=== PATIENT | male | born 1965 | race Two or more races ===

== ENCOUNTER 2021-04-01 20:24 | Emergency (ER) | payer MEDICAID ==
[~2021-04-01] VITALS: Ht 157.5 cm; Wt 72.6 kg
--- NOTE | 2021-04-01 20:39 | NUR ---
pt bibself c/o lower abd pain and back pain x6 months. Pt aaox4 breathing evenly and unlabored. Pt attached to monitor and pox. MD at bedside for eval. skin warm, dry, and intact. Pt given blanket and call light within reach.
--- NOTE | 2021-04-01 20:47 | NUR ---
urine sent to lab
[2021-04-01] MEDS ORDERED: DICYCLOMINE HCL 10 MG CAPSULE PO ONE ×2 (20:50→21:00)
--- NOTE | 2021-04-01 20:50 | NUR ---
at bedside for us
[2021-04-01 20:54] LABS: BILIRUBIN,URINE Negative (NEGATIVE); COLOR,URINE YELLOW (YELLOW); LEUKOCYTE ESTERASE ,URINE Negative (NEGATIVE); NITRITE, URINE Negative (NEGATIVE); PH,URINE 5.5 (5.0-8.0); PROTEIN,URINE Negative (NEGATIVE); UGLUCOSE Negative (NEGATIVE); UROBILINOGEN,URINE 0.2 EU/dL (0.2)
[2021-04-01] MEDS ORDERED: DICY10CA37 PO (20:54)
[2021-04-01 21:12] VITALS: BP 138/89
--- NOTE | 2021-04-01 21:13 | NUR ---
Patient discharged to home in stable condition. Rx and Written and verbal after care instructions given. Patient verbalizes understanding of instruction.
== END 2021-04-01 21:13 | disposition home or self-care (01) ==
LOC: ER 20:32
DX: G89.29 Other chronic pain (principal); R30.0 Dysuria; I10 Essential (primary) hypertension; E78.00 Pure hypercholesterolemia, unspecified; Z88.8 Allergy status to other drugs, medicaments and biological substances

== ENCOUNTER → 2021-11-30 | Emergency (ER) | payer MEDICAID ==
[~2021-11-30] VITALS: Ht 172.7 cm; Wt 81.2 kg
[~2021-11-30] MED LIST: BENZ-13 PO; DICY10CA37 PO; GUAI1TBM19 PO; GUAIFENESIN/D-METHORPHAN HB 5 ML UDC ONE; GUAIFENESIN/D-METHORPHAN HB 5 ML UDC PO ONE; KETOROLAC TROMETHAMINE INJ 30 MG/ML VIAL IM ONE; KETOROLAC TROMETHAMINE INJ 30 MG/ML VIAL ONE; PRED20TA PO; predniSONE 20 MG TABLET ONE; predniSONE 50 MG TABLET PO ONE
[2021-11-30 13:11] VITALS: BP 151/91
--- NOTE | 2021-11-30 13:15 | NUR ---
BIBS FOR C/O FACIAL ITCHING/NASAL CONGESTION AND SKIN ITCHING SINCE HE WAS EXPOSED TO DUST AFTER LIFTING A CARPET A WEEK AGO. DENIES PAIN. IN ROOM AIR AND DENIES SOB. RESPIRATION REGULAR AND UNLABORED. WILL CONTINUE TO MONITOR THE PATIENT.
--- NOTE | 2021-11-30 15:00 | NUR ---
Patient discharged to home in stable condition. Written and verbal after care instructions given. Patient verbalizes understanding of instruction.
--- NOTE | 2021-11-30 15:01 | NUR ---
UNABLE TO DEPART THE PATIENT FROM [facility]
== END | disposition home or self-care (01) ==
LOC: ER 16:34
DX: T78.40XA Allergy, unspecified, initial encounter (principal); I10 Essential (primary) hypertension; E78.00 Pure hypercholesterolemia, unspecified; Z88.8 Allergy status to other drugs, medicaments and biological substances; Z79.52 Long term (current) use of systemic steroids; Z79.899 Other long term (current) drug therapy; X58.XXXA Exposure to other specified factors, initial encounter
CPT/HCPCS: 96372; 99283; J1885; J7512

== ENCOUNTER 2021-12-21 16:47 | Emergency (ER) | payer MEDICAID ==
[~2021-12-21] VITALS: Ht 172.7 cm; Wt 68.0 kg
[~2021-12-21 16:47] MED LIST changes: -GUAIFENESIN/D-METHORPHAN HB 5 ML UDC ONE; -GUAIFENESIN/D-METHORPHAN HB 5 ML UDC PO ONE; -KETOROLAC TROMETHAMINE INJ 30 MG/ML VIAL IM ONE; -KETOROLAC TROMETHAMINE INJ 30 MG/ML VIAL ONE; -predniSONE 20 MG TABLET ONE; -predniSONE 50 MG TABLET PO ONE
[2021-12-21] MEDS ORDERED: IBUPROFEN 600 MG TABLET ONE (17:22)
[2021-12-21] MEDS ORDERED: IBUPROFEN 600 MG TABLET PO ONE (17:30)
--- NOTE | 2021-12-21 18:24 | NUR ---
CALLED [facility] FOR READ [phone]
[2021-12-21 18:52] VITALS: BP 121/81
== END 2021-12-21 18:53 | disposition home or self-care (01) ==
LOC: ER 16:48
DX: R07.81 Pleurodynia (principal); I10 Essential (primary) hypertension; E78.00 Pure hypercholesterolemia, unspecified; Z88.8 Allergy status to other drugs, medicaments and biological substances; Z79.899 Other long term (current) drug therapy; Y08.89XA Assault by other specified means, initial encounter; Y93.89 Activity, other specified; Y92.89 Other specified places as the place of occurrence of the external cause; Y99.8 Other external cause status
CPT/HCPCS: 71111-TC

== ENCOUNTER 2022-11-27 10:02 | Emergency (ER) | payer MEDICAID ==
[~2022-11-27] VITALS: Ht 167.6 cm; Wt 68.9 kg
--- NOTE | 2022-11-27 10:15 | NUR ---
C/O DIZZY, WEAKNESS AND BODY ITCHING SINCE YESTERDAY.
--- NOTE | 2022-11-27 10:33 | NUR ---
urine sample obtained
[2022-11-27 10:49] LABS: BASOPHILS % (AUTO) 0.4 % (0.0-2.0); EOSINOPHILS % (AUTO) 1.4 % (0.0-6.0); HEMATOCRIT 43 % (39-51); HEMOGLOBIN 14.6 g/dL (13.5-17.5); LYMPHOCYTES # (AUTO) 2.9 K/uL (0.8-4.8); LYMPHOCYTES % (AUTO) 31.5 % (20.0-44.0); MEAN CORPUSCULAR HGB CONC 34 g/dl (31.0-36.0); MEAN CORPUSCULAR VOLUME 90 fL (80-96); MONOCYTES # (AUTO) 0.8 K/uL (0.1-1.30); MONOCYTES % (AUTO) 8.6 % (2.0-12.0); NEUTROPHILS # (AUTO) 5.4 K/uL (1.8-8.9); NEUTROPHILS % (AUTO) 58.1 % (43.0-81.0); PLATELET COUNT (AUTO) 498 K/uL (150-450); WHITE BLOOD COUNT (AUTO) 9.3 K/uL (4.3-11.0)
[2022-11-27 11:14] LABS: CARBON DIOXIDE 28 mmol/L (21-32)
--- NOTE | 2022-11-27 11:21 | NUR ---
BLOOD DRAWN AND RESULTING
[2022-11-27 11:24] LABS: BILIRUBIN,URINE NEGATIVE (NEGATIVE); COLOR,URINE YELLOW (YELLOW); LEUKOCYTE ESTERASE ,URINE TRACE (NEGATIVE); NITRITE, URINE NEGATIVE (NEGATIVE); PH,URINE 6.5 (5.0-8.0); PROTEIN,URINE NEGATIVE (NEGATIVE); UGLUCOSE NEGATIVE (NEGATIVE); UROBILINOGEN,URINE 0.2 EU/dL (0.2)
[2022-11-27 11:36] LABS: ACETAMINOPHEN 0 ug/ml (10-30); ALANINE AMINOTRANSFERASE 33 U/L (12-78); ALBUMIN 3.6 g/dL (3.4-5.0); ALCOHOL, BLOOD < 3 mg/dL (0-0); ALKALINE PHOSPHATASE 76 U/L (46-116); ASPARTATE AMINOTRANSFERASE 31 U/L (15-37); BILIRUBIN,DIRECT 0.1 mg/dL (0.0-0.2); BILIRUBIN,TOTAL 0.4 mg/dL (0.2-1.0); CHLORIDE 108 mmol/L (98-107); CREATININE 0.9 mg/dL (0.6-1.3); GLUCOSE 85 mg/dL (74-106); POTASSIUM 3.5 mmol/L (3.5-5.1); SODIUM SERUM 142 mmol/L (136-145); TOTAL PROTEIN, SERUM 7.2 g/dL (6.4-8.2); UREA NITROGEN, BLOOD 9 mg/dL (7-18)
[2022-11-27] MEDS ORDERED: MECL-159 PO (11:47)
[2022-11-27 11:54] LABS: BACTERIA,URINE None seen /HPF (None Seen); RBC,URINE 0-2 /HPF (0-2); SQUAMOUS EPITHELIAL CELL,UR Rare /HPF (None Seen)
--- NOTE | 2022-11-27 12:23 | NUR ---
Patient discharged to home in stable condition. Written and verbal after care instructions given. Patient verbalizes understanding of instruction.
[2022-11-27 12:24] VITALS: BP 122/73
== END 2022-11-27 12:24 | disposition home or self-care (01) ==
LOC: ER 10:02
DX: R42 Dizziness and giddiness (principal); I10 Essential (primary) hypertension; E78.00 Pure hypercholesterolemia, unspecified; Z88.8 Allergy status to other drugs, medicaments and biological substances; Z79.899 Other long term (current) drug therapy
CPT/HCPCS: 36415; 80048-TC; 80076-TC; 81001; 85025-TC; 87086-TC; G0480